=== PATIENT | female | born 1960 | race Caucasian/White ===

== ENCOUNTER 2020-01-21 10:40 | Day surgery (SDC) | payer OTHER ==
[~2020-01-21] VITALS: Ht 167.6 cm; Wt 77.1 kg
[2020-01-21] MEDS ORDERED: LR 1,000 ML IV SCH (14:34)
[2020-01-21] MEDS ORDERED: METOCLOPRAMIDE HCL 10 MG/2 ML VIAL ONE (14:35)
[2020-01-21] MEDS ORDERED: ONDANSETRON HCL 4 MG/2 ML VIAL ONE (14:35)
[2020-01-21] MEDS ORDERED: fentaNYL CITRATE/PF 100 MCG/2 ML AMP ONE (14:35)
[2020-01-21] MEDS ORDERED: LR 1,000 ML IV.SOLN IV ONE (14:35)
[2020-01-21] MEDS ORDERED: SEVOFLURANE 15 MIN GAS INH ONE (14:35)
[2020-01-21] MEDS ORDERED: KETOROLAC TROMETHAMINE 30 MG VIAL ONE (14:35)
[2020-01-21] MEDS ORDERED: SUCCINYLCHOLINE CHLORIDE 20 MG/ML(QUELICIN) ONE (14:35)
[2020-01-21] MEDS ORDERED: MIDAZOLAM HCL 5 MG/ML VIAL (VERSED) IV ONE (14:35)
[2020-01-21] MEDS ORDERED: NS IRRIG SOLN 1000 ML IR ONE (14:35)
[2020-01-21] MEDS ORDERED: MEPERIDINE HCL/PF 25 MG/ML DISP.SYRIN IVP PRN (14:45)
[2020-01-21] MEDS ORDERED: NALOXONE HCL 0.4 MG/ML AMP (NARCAN) IVP PRN (14:45)
[2020-01-21] MEDS ORDERED: HYDROmorphone 2 MG/ML VIAL IVP PRN ×2 (14:45)
[2020-01-21] MEDS ORDERED: DILTIAZEM HCL 25 MG/5 ML VIAL IVP PRN (14:45)
[2020-01-21] MEDS ORDERED: ePHEDrine sulfate 50 MG/ML VIAL IVP PRN (14:45)
[2020-01-21] MEDS ORDERED: MIDAZOLAM HCL 5 MG/5 ML VIAL IVP PRN (14:45)
[2020-01-21] MEDS ORDERED: HYDROmorphone 1 MG INJ. 1 MG/ML AMPUL IVP PRN (14:45)
[2020-01-21 15:58] VITALS: BP_SYST 142
== END 2020-01-21 11:55 | disposition home or self-care (01) ==
LOC: SDS 10:40 → SMU 10:41 → SDS 11:55
PROVIDERS: ATTEND Orthopaedic Surgery
DX: D17.22 Benign lipomatous neoplasm of skin and subcutaneous tissue of left arm (principal); R22.31 Localized swelling, mass and lump, right upper limb; D48.7 Neoplasm of uncertain behavior of other specified sites; Z98.51 Tubal ligation status; Z88.8 Allergy status to other drugs, medicaments and biological substances; Z98.890 Other specified postprocedural states; Z87.891 Personal history of nicotine dependence
CPT/HCPCS: 25075; 26113; 88304; 88305; J0330; J1885; J2250; J2405; J2765; J3010; J7120; U0002